=== PATIENT | male | born 1970 | race Caucasian/White ===

== ENCOUNTER 2020-08-21 13:41 | Outpatient (CLI) | payer OTHER, SELFPAY ==
--- NOTE | ~2020-08-21 | XR_ITS ---
EXAMINATION: XR hand BI arthritis min 3V DATE: 08/21/2020 14:16 INDICATION: Rheumatoid arthritis without rheumatoid factor. TECHNIQUE: 4 views of right hand and 4 views of left hand on a total of 7 radiographs were obtained. COMPARISON: None. FINDINGS: RIGHT HAND: Bone alignment is normal. No fracture. Joint spaces are well maintained. LEFT HAND: Bone alignment is normal. No fracture. Joint spaces are well maintained. IMPRESSION: 1. No arthritis. Reviewed, dictated and finalized at location A. E ASSEMBLER IMPRESSION: 1. No arthritis.
== END 2020-08-21 13:42 | disposition home or self-care (01) ==
PROVIDERS: PCP Internal Medicine; Referring Provider Internal Medicine; Visit Provider Internal Medicine
DX: M06.041 Rheumatoid arthritis without rheumatoid factor, right hand (principal); M06.042 Rheumatoid arthritis without rheumatoid factor, left hand
CPT/HCPCS: 73130

== ENCOUNTER 2021-11-23 11:02 | Outpatient (CLI) | payer OTHER, SELFPAY ==
--- NOTE | 2021-11-23 11:12 | EST_ITS ---
Patient Info Name: Noel Huerta Age: 51 years : 1970 Gender: Male Ht: 71 in Wt: 237 lbs BSA: 2.35 m2 HR: 67 bpm BP: 122 / 76 mmHg Heart Rhythm: Sinus Rhythm Exam Date: 11/23/2021 11:23 AM Exam Location: [facility] Stress Patient Status: Outpatient Admit Date: 11/23/2021 Staff Ordering Physician: Paco Ordonez MD Attending Provider: Paco Ordonez MD Exercise Technologist: Trudi Coleman CT Exercise Physician: Yuri Roca DO Exam Type: CA stress test treadmill Study Info Indications R07.89 - Other chest pain A treadmill exercise stress test was performed. Summary 1. 1. Equivocal Sridhar exercise stress test for ischemic ST changes by ECG criteria due to transient ST depression at peak exercise. Consider CTA of heart if clinically indicated. 2. 2. Reduced functional capacity, achieving 9 METs of workload. 3. 3. Appropriate HR response to exercise. 4. 4. Appropriate HR recovery at 1 minute post exercise. 5. 5. No imaging with stress testing. 6. 6. Patient informed of the above results. Protocol: Sridhar Stress ECG Details Stage: REST Duration (min): 0 min : 56 sec Speed (mph): 0.0 Grade (%): 0 HR (bpm): 67 SBP (mmHg): 122 DBP (mmHg): 76 METS: --- Stage: REST Duration (min): 5 min : 50 sec Speed (mph): 0.0 Grade (%): 0 HR (bpm): 74 SBP (mmHg): 122 DBP (mmHg): 76 METS: --- Stage: STAGE 1 Duration (min): 1 min : 0 sec Speed (mph): 1.7 Grade (%): 10 HR (bpm): 108 SBP (mmHg): 122 DBP (mmHg): 76 METS: --- Stage: STAGE 1 Duration (min): 2 min : 0 sec Speed (mph): 1.7 Grade (%): 10 HR (bpm): 116 SBP (mmHg): 122 DBP (mmHg): 76 METS: --- Stage: STAGE 1 Duration (min): 3 min : 0 sec Speed (mph): 1.7 Grade (%): 10 HR (bpm): 117 SBP (mmHg): 153 DBP (mmHg): 85 METS: --- Stage: STAGE 2 Duration (min): 1 min : 0 sec Speed (mph): 2.5 Grade (%): 12 HR (bpm): 137 SBP (mmHg): 153 DBP (mmHg): 85 METS: --- Stage: STAGE 2 Duration (min): 2 min : 0 sec Speed (mph): 2.5 Grade (%): 12 HR (bpm): 142 SBP (mmHg): 177 DBP (mmHg): 70 METS: --- Stage: STAGE 2 Duration (min): 3 min : 0 sec Speed (mph): 2.5 Grade (%): 12 HR (bpm): 149 SBP (mmHg): 177 DBP (mmHg): 70 METS: --- Stage: STAGE 3 Duration (min): 1 min : 0 sec Speed (mph): 3.4 Grade (%): 14 HR (bpm): 166 SBP (mmHg): 190 DBP (mmHg): 73 METS: --- Stage: STAGE 3 Duration (min): 1 min : 10 sec Speed (mph): 3.4 Grade (%): 14 HR (bpm): 169 SBP (mmHg): 190 DBP (mmHg): 73 METS: --- Stage: RECOVERY Duration (min): 0 min : 49 sec Speed (mph): 0.0 Grade (%): 0 HR (bpm): 157 SBP (mmHg): 190 DBP (mmHg): 73 METS: --- Stage: RECOVERY Duration (min): 1 min : 49 sec Speed (mph): 0.0 Grade (%): 0 HR (bpm): 121 S
== END 2021-11-23 11:03 | disposition home or self-care (01) ==
LOC: ANHCARD 11:04
PROVIDERS: PCP Internal Medicine; Visit Provider Internal Medicine
DX: R07.89 Other chest pain (principal)
CPT/HCPCS: 93017

== ENCOUNTER 2021-12-21 13:49 | Outpatient (CLI) | payer OTHER, SELFPAY ==
--- NOTE | 2021-12-25 16:00 | WPDHOMESLEEP ---
Sleep Study - Home Unattended Date of Study: 12/21/21 Ordering Provider: Paco Ordonez MD Interpreting Provider: Fara Geller, DO Home Sleep Study Type: Watch PAT Height: 1.8 m Weight: 109.769 kg Body Mass Index: 33.7 Neck Circumference (inches): 16 [place]: 1 Reason for Sleep Study Unrefreshing sleep and daytime hypersomnia Sleep History The patient is a 51-year-old male with hypertension, rheumatoid arthritis, deviated septum and vitamin D deficiency that had a home sleep test ordered by his primary care physician for evaluation sleep apnea. 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 He had a sleep study done 17 years ago and was told that he had RLS. The patient occasionally awakens from sleep short of breath. He occasionally awakens at night with heartburn, belching cough. He frequently snores loud enough that others complain. He denies having trouble sleeping when he has a cold. He denies waking up gasping for air throughout the night. He occasionally has breathing problems at night observed by himself or others. He rarely sweats excessively at night. He denies heart palpitations or irregular heartbeats during night. He rarely falls asleep during the day and never while driving. He rarely has trouble at work due to sleepiness. He occasionally feels unable to move when waking up or falling asleep. Rarely experiences dreamlike scenes upon awakening falling asleep. He denies experiencing loss of muscle tone when extremely emotional. He rarely has nightmares. He frequently has thoughts racing through his mind. He rarely feels sad or depressed. He occasionally has anxiety. He denies having muscular tension. He rarely notices parts of his body jerk. He rarely kicks during night. He denies having crawling and aching feelings in his legs as well as leg pain during the night. He denies grinding his teeth during sleep and awakening with morning jaw pain. He is occasionally bothered by pain during the day and occasionally awakened by pain during the night. He frequently wakes up feeling stiff in the morning. He occasionally wakes up with sore achy muscles. He occasionally wakes up with pain in the neck, spine or other joints. He goes to bed at 11:30 p.m. on weekdays and between 12 30-1 a.m. on the weekends. It takes him 10 minutes to fall asleep. He wakes up 1-2 times throughout the night. When he wakes up, he will use the restroom. If he can not fall back asleep he will look on his phone. He can fall back asleep within 1-2 minutes. He wakes up at 7:30 a.m. weekdays and between 9 and 10:00 a.m. on weekends. He typically gets 7-8 hours of sleep per night. He will stay in bed for 15-20 minutes after waking up in the morning. The patient currently has joint custody of his daughter. When the daughter is not with him, he will spend time in his girlfriend's house. he will occasionally consume caffeinated beverages within 2 hours of bedtime. He does not engage in physical exercise bedtime. He will report for falling asleep. He does not take naps in the afternoon or the evening. He will drink 2-3 caffeinated beverages per day. He will occasionally have 1-2 alcoholic beverages per day he denies tobacco and recreational drug use. [facility] Past Medical History Medical History Encounter for screening for other viral diseases Inflammatory arthritis Other reconstructive surgery as the cause of abnormal reaction of the patient, or of later complication, without mention of misadventure at the time of the procedure Rheumatoid arthritis with rheumatoid factor of multiple sites without organ or systems involvement (~07/2012) Family History Family History Mother Patient's mother is in good health Sibling Patient's sister is in good health Father Hypertension Social History Social History (Reviewed
[2021-12-25 16:12] VITALS: BMI 33.7
== END 2021-12-22 10:59 | disposition home or self-care (01) ==
LOC: ANHCSM 13:50
PROVIDERS: PCP Internal Medicine; Visit Provider Internal Medicine
DX: G47.10 Hypersomnia, unspecified (principal); G47.33 Obstructive sleep apnea (adult) (pediatric)
CPT/HCPCS: 95800

== ENCOUNTER 2022-11-08 15:04 | Outpatient (CLI) | payer OTHER, SELFPAY ==
--- NOTE | ~2022-11-08 | US_ITS ---
US abdomen complete EXAMINATION: US Abdomen Complete INDICATION: Abdominal pain. Right upper quadrant pain. PROCEDURE: Realtime High Resolution abdomen ultrasound. COMPARISON: CT dated 09/07/2018 FINDINGS: Gallbladder within normal limits. No gallstones, pericholecystic fluid, gallbladder wall t hickening or biliary dilatation. Common bile duct measures 7 mm. Liver echotexture is homogeneous. There is a heterogeneous mass in the right upper abdomen situated b etween the pancreas and liver measuring 5.3 x 4.8 x 3.8 cm, of uncertain origin. This may be exophyti c from the liver or the pancreas. Pancreatic tail is obscured by bowel gas. Spleen is unremarkeable. Renal echotexture is within normal limits bilaterally without hydronephrosis, contour deforming mass or renal stone. Right kidney measures 13 cm. Left kidney measures 12.2 cm. Visualized aspects of the aorta and IVC are within normal limits. Portal vein is patent. No sonograph ic Espinal's sign indicated by the technologist. IMPRESSION: 1: Complex right upper abdominal mass measuring up to 5.3 cm insinuating between the liver and pancre as, uncertain origin. Recommend correlation with CT abdomen with contrast. Reviewed, dictated and finalized at location A. CELL BUILDER IMPRESSION: 1: Complex right upper abdominal mass measuring up to 5.3 cm insinuating betwee n the liver and pancreas, uncertain origin. Recommend correlation with CT abdom en with contrast.
== END 2022-11-08 15:05 | disposition home or self-care (01) ==
LOC: ANHIMG 15:06
PROVIDERS: Visit Provider Internal Medicine
DX: R19.01 Right upper quadrant abdominal swelling, mass and lump (principal)
CPT/HCPCS: 76700

== ENCOUNTER 2022-11-13 09:46 | Outpatient (CLI) | payer OTHER, SELFPAY ==
--- NOTE | ~2022-11-13 | CT_ITS ---
CT Abdomen and Pelvis with contrast. History: Abdominal pain. Spiral CT of the abdomen and pelvis was performed after the administration of intravenous contrast. 1 00 cc of Omnipaque 350 was administered intravenously without complication. Dose reduction technique was used on this scan by utilizing automated exposure control and iterative reconstruction technique. The dose-length product (DLP) was 1234.27 mGy-cm. Findings: Scans through the lung bases demonstrate mild atelectatic change. The liver, spleen, pancreas, gallbladder, adrenals and kidneys are within normal limits. No evidence of aortic aneurysm. There is a large probable rosio mass at the roddy hepatis region, measuring 6.3 x 5.8 x 7.8 cm in extent (axial image 48, coronal image 56 for example). Additional shotty retroperit zhu lymph nodes are not enlarged by size criteria. There is no evidence of bowel obstruction. There is no evidence to suggest acute appendicitis or diverticulitis. Images through the pelvis were performed. Urinary bladder unremarkable. Prostate gland and seminal ve sicles are unremarkable. No ascites is seen. Impression: 6.3 x 5.8 x 7.8 cm rosio mass in the roddy hepatis. This is consistent with neoplastic or lymphomatou s lesion. Tissue sampling is advised to establish a histologic diagnosis. Reviewed, dictated and finalized at [facility]. TYPIST Impression: 6.3 x 5.8 x 7.8 cm rosio mass in the roddy hepatis. This is consistent with kirk plastic or lymphomatous lesion. Tissue sampling is advised to establish a histo logic diagnosis.
== END 2022-11-13 09:47 ==
PROVIDERS: PCP Internal Medicine; Visit Provider Internal Medicine
DX: R89.9 Unspecified abnormal finding in specimens from other organs, systems and tissues (principal); R19.01 Right upper quadrant abdominal swelling, mass and lump; R16.0 Hepatomegaly, not elsewhere classified
CPT/HCPCS: 74177; Q9967

== ENCOUNTER 2024-09-02 01:27 | Day surgery (SDC) | payer OTHER, SELFPAY ==
[2024-08-24 13:29] VITALS: BMI 36.3
[2024-09-02 11:51] VITALS: BP 134/91; PULSE 99; RESP 18; TEMP 36.9; O2SAT 96
[2024-09-02] MEDS: LACTATED RINGERS 1,000 ML 150 ML IV CONT (12:05)
--- NOTE | 2024-09-02 13:08 | WPDANESEPPF ---
Anes - Initial Pre Proc Eval Procedure: Operation Date: 09/02/24 13:00 Proposed Procedures p Screening Colonoscopy - Kyle Kline MD Date/Time: 09/02/24 13:08 Surgeon: Kyle Kline MD Pre Op Diagnosis: screening neoplasm colon Patient Data Age: 54 Gender: M Height: 1.8 m Weight: 120 kg Last Vital Signs Temp 36.9 C 09/02/24 11:51 Pulse 99 09/02/24 11:51 Resp 18 09/02/24 11:51 BP 134/91 H 09/02/24 11:51 Pulse Ox 96 09/02/24 11:51 O2 Del Method Room Air 09/02/24 11:51 Allergies Allergy/AdvReac Type Severity Reaction Status Date / Time [place] Tree Allergy Mild allergies Uncoded 09/02/24 11:49 Home Medications ?Medication ?Instructions ?Recorded ?Confirmed ?Type cholecalciferol (vitamin D3) 125 5,000 unit PO DAILY #30 tabs 07/30/19 09/02/24 Rx mcg (5,000 unit) tablet multivitamin (Daily Multi-Vitamin 1 tablet PO DAILY #1 tablet 02/19/23 09/02/24 Rx tablet) losartan 100 mg tablet See Rx Instructions .Route 07/13/24 09/02/24 Rx .COMPLEX #90 tabs famotidine 40 mg tablet 40 mg PO DAILY 08/24/24 09/02/24 History sulfasalazine 500 mg 1,000 mg PO BID 08/24/24 09/02/24 History tablet,delayed release Patient hx anesthesia problems: none Family hx anesthesia problems: none Results Review: All pre-operative results and documents have been reviewed as part of the pre-operative evaluation. [facility] Past Medical History Medical History Large B-cell lymphoma Rheumatoid arthritis Liver mass Abdominal pain Bilateral hand pain Encounter for screening for other viral diseases Rheumatoid arthritis with rheumatoid factor of multiple sites without organ or systems involvement (~07/2012) Inflammatory arthritis Other reconstructive surgery as the cause of abnormal reaction of the patient, or of later complication, without mention of misadventure at the time of the procedure Family History Family History Mother Patient's mother is in good health Sibling Patient's sister is in good health Father Hypertension Social History Social History Smoking status: Never smoker Second hand tobacco smoke exposure: No Alcohol intake: current Drinks per week: 1 Alcohol use details: occasionally Substance use: never Substance use type: does not use Do You Feel Safe in your Home?: Yes Lack of Transportation: No Lack of Food: Never True Current Housing: I Have Housing Concerned About Future Housing: No Difficulty Paying Gas/Electric Bills: No Difficulty Paying for Meds: No Currently Unemployed: No Education: Bachelor's Degree Difficulty w/ Childcare or Family Care: No Living arrangements: alone Occupation/Education: occupation Gender identity (if verbalized by the patient): Male Spiritual care concerns: No Agree to blood products: Yes Anes - Eval Final PreProcedure Day of Procedure 09/02/24 13:08 Patient weight: normal and obese Heart: regular rate and rhythm Lungs: clear to auscultation Airway: Mallampati scale class II Neurological: alert and oriented Last oral intake: >/= 8 hours ASA classification: III Emergent: no Anesthetic plan: proceed Anesthesia type and monitoring: general GIVS and standard monitoring Results Review: All pre-operative results and documents have been reviewed as part of the pre-operative evaluation. Informed Consent: The patient's anesthetic plan and its attendant risks and benefits were discussed with the patient/family/POA. Questions were solicited and answers provided to the satisfaction of the patient/family/POA.
--- NOTE | 2024-09-02 13:17 | P.HP_ITS ---
History of Present Illness History of Present Illness Consent: Risks, benefits, and alternatives have been discussed and questions answered. Patient agrees to proceed with procedure. Chief complaint: screening neoplasm colon Narrative: Noel Huerta is a 54 year old male here for screening colonoscopy, he had one about 20 years ago Review of Systems Review of Systems: All systems reviewed & are unremarkable except as noted in HPI and below PMFSH Past Medical History Medical History Large B-cell lymphoma Rheumatoid arthritis Liver mass Abdominal pain Bilateral hand pain Encounter for screening for other viral diseases Rheumatoid arthritis with rheumatoid factor of multiple sites without organ or systems involvement (~07/2012) Inflammatory arthritis Other reconstructive surgery as the cause of abnormal reaction of the patient, or of later complication, without mention of misadventure at the time of the procedure Family History Family History Mother Patient's mother is in good health Sibling Patient's sister is in good health Father Hypertension Social History Social History Smoking status: Never smoker Second hand tobacco smoke exposure: No Alcohol intake: current Drinks per week: 1 Alcohol use details: occasionally Substance use: never Substance use type: does not use Do You Feel Safe in your Home?: Yes Lack of Transportation: No Lack of Food: Never True Current Housing: I Have Housing Concerned About Future Housing: No Difficulty Paying Gas/Electric Bills: No Difficulty Paying for Meds: No Currently Unemployed: No Education: Bachelor's Degree Difficulty w/ Childcare or Family Care: No Living arrangements: alone Occupation/Education: occupation Gender identity (if verbalized by the patient): Male Spiritual care concerns: No Agree to blood products: Yes Meds Home Medications and Allergies Home Medications ?Medication ?Instructions ?Recorded ?Confirmed ?Type cholecalciferol (vitamin D3) 125 5,000 unit PO DAILY #30 tabs 07/30/19 09/02/24 Rx mcg (5,000 unit) tablet multivitamin (Daily Multi-Vitamin 1 tablet PO DAILY #1 tablet 02/19/23 09/02/24 Rx tablet) losartan 100 mg tablet See Rx Instructions .Route 07/13/24 09/02/24 Rx .COMPLEX #90 tabs famotidine 40 mg tablet 40 mg PO DAILY 08/24/24 09/02/24 History sulfasalazine 500 mg 1,000 mg PO BID 08/24/24 09/02/24 History tablet,delayed release Allergies Allergy/AdvReac Type Severity Reaction Status Date / Time [place] Tree Allergy Mild allergies Uncoded 09/02/24 11:49 Vital Signs Vital Signs - 24 hr 09/02/24 11:51 Temperature 98.4 F Pulse Rate 99 Respiratory Rate 18 Blood Pressure 134/91 H Pulse Oximetry 96 Oxygen Delivery Room Air Exam Const: General: comfortable and no acute distress HENMT: Face/Nose/Sinus: Normal nares present Eyes: General: appearance normal, both eyes and all related structures Neck: Neck: no JVD Resp: Auscultation: clear to auscultation bilaterally Cardio: Rate: regular rate Rhythm: regular rhythm GI: Inspection: non-distended GI Palp: Yes Soft to palpation Skin: General skin exam: normal color Neuro: General: gait normal Speech: normal speech Extrem: General: normal to inspection Psych: Mental Status: mental status grossly normal Assessment and Plan Assessment and plan (1) Encounter for screening colonoscopy: Code(s): Z12.11 - Encounter for screening for malignant neoplasm of colon Status: Acute Assessment and Plan: colonoscopy
[2024-09-02 13:40] VITALS: BP 138/89; PULSE 84; RESP 18; O2SAT 100
[2024-09-02 13:50] VITALS: BP 130/90; PULSE 82; RESP 18; O2SAT 100
[2024-09-02 13:51] VITALS: BP 135/66; PULSE 75; RESP 19; O2SAT 100
== END 2024-09-02 14:06 | disposition home or self-care (01) ==
PROVIDERS: PCP Nurse Practitioner Family; Visit Provider Internal Medicine Gastroenterology
PROC: 0DJD8ZZ Inspection of Lower Intestinal Tract, Via Natural or Artificial Opening Endoscopic (ICD-10-PCS; CPT 45378; principal; 2024-09-02 13:00)
DX: Z12.11 Encounter for screening for malignant neoplasm of colon (principal); D12.3 Benign neoplasm of transverse colon; D12.5 Benign neoplasm of sigmoid colon; D12.2 Benign neoplasm of ascending colon; K57.30 Diverticulosis of large intestine without perforation or abscess without bleeding
CPT/HCPCS: 45385; 88305; J2003; J2704; J7120